=== PATIENT | male | born 1995 | race Caucasian/White ===

== ENCOUNTER 2021-09-24 13:55 | Emergency (ER) | payer OTHER ==
[~2021-09-24] VITALS: Ht 170.2 cm; Wt 72.6 kg
--- NOTE | 2021-09-24 14:15 | NUR ---
BIBS C/O"Abdominal Pain x2wks. Feel constipated". AMBULATORY, PLACED ON BED, AAOX4.
[2021-09-24] MEDS ORDERED: PANTOPRAZOLE 40 MG VIAL ONE (14:49)
[2021-09-24] MEDS ORDERED: ONDANSETRON HCL/PF 4 MG/2 ML VIAL ONE (14:49)
[2021-09-24] MEDS ORDERED: IOHEXOL-300 100 ML VIAL IV ONE (14:53)
[2021-09-24] MEDS ORDERED: CT SWABBABLE VALVE TRANS SET 1 EA INFUS.SET MC ONE (14:54)
[2021-09-24] MEDS ORDERED: IV NS 0.9% 250 ML IV ONE (14:54)
--- NOTE | 2021-09-24 14:55 | NUR ---
BLOOD DRAWN, URINE SAMPLE SENT TO LAB
[2021-09-24] MEDS ORDERED: PANTOPRAZOLE 40 MG VIAL IV ONE (15:00)
[2021-09-24] MEDS ORDERED: IV NS 0.9% 1,000 ML BAG IV ONE (15:00)
[2021-09-24] MEDS ORDERED: ONDANSETRON HCL/PF 4 MG/2 ML VIAL IVP ONE (15:00)
--- NOTE | 2021-09-24 15:02 | NUR ---
PATIENT TAKEN TO CT VIA WHEELCHAIR
[2021-09-24 15:06] LABS: BILIRUBIN,URINE MODERATE (NEGATIVE); COLOR,URINE YELLOW (YELLOW); LEUKOCYTE ESTERASE ,URINE NEGATIVE (NEGATIVE); NITRITE, URINE NEGATIVE (NEGATIVE); PROTEIN,URINE TRACE mg/dl (NEGATIVE); UGLUCOSE NEGATIVE (NEGATIVE); UROBILINOGEN,URINE 0.2 EU/dL (0.2)
[2021-09-24 15:21] LABS: BASOPHILS % (AUTO) 0.3 % (0.0-2.0); EOSINOPHILS % (AUTO) 2.7 % (0.0-6.0); HEMATOCRIT 45 % (39-51); HEMOGLOBIN 15.4 g/dL (13.5-17.5); LYMPHOCYTES # (AUTO) 1.9 K/uL (0.8-4.8); MEAN CORPUSCULAR HGB CONC 34 g/dl (31.0-36.0); MEAN CORPUSCULAR VOLUME 87 fL (80-96); MONOCYTES # (AUTO) 0.5 K/uL (0.1-1.30); MONOCYTES % (AUTO) 9.5 % (2.0-12.0); NEUTROPHILS # (AUTO) 2.6 K/uL (1.8-8.9); NEUTROPHILS % (AUTO) 50.5 % (43.0-81.0); PLATELET COUNT (AUTO) 277 K/uL (150-450); RED BLOOD CELL COUNT(AUTO) 5.24 MIL/uL (4.5-6.0); WHITE BLOOD COUNT (AUTO) 5.1 K/uL (4.3-11.0)
[2021-09-24 15:58] LABS: CALCIUM, SERUM 9.3 mg/dL (8.5-10.1); CREATININE 1.2 mg/dL (0.6-1.3); POTASSIUM 3.9 mmol/L (3.5-5.1)
[2021-09-24 16:04] LABS: ALBUMIN 4.4 g/dL (3.4-5.0); BILIRUBIN,DIRECT 0.2 mg/dL (0.0-0.2); BILIRUBIN,TOTAL 0.7 mg/dL (0.2-1.0); TOTAL PROTEIN, SERUM 8.4 g/dL (6.4-8.2)
[2021-09-24] MEDS ORDERED: PANT40TA2 PO (16:23)
--- NOTE | 2021-09-24 16:32 | NUR ---
IV removed. Catheter intact and site benign. Pressure and 4x4 applied to site. No bleeding noted.Patient discharged to home in stable condition. Written and verbal after care instructions given. Patient verbalizes understanding of instruction.
[2021-09-24 16:33] VITALS: BP 110/74
== END 2021-09-24 16:34 | disposition home or self-care (01) ==
LOC: ER 14:13
DX: R10.9 Unspecified abdominal pain (principal); R11.0 Nausea
CPT/HCPCS: 74177; 99284; 96374; 96361; 96375; 85025; 80048; 83690; 80076; 81003; 36415; J2405; J7030; J7050; C9113; Q9967

== ENCOUNTER 2024-11-11 00:24 | Emergency (ER) | payer MEDICAID, OTHER ==
[~2024-11-11] VITALS: Ht 165.1 cm; Wt 65.8 kg
[~2024-11-11 00:24] MED LIST: PANT40TA2 PO
[2024-11-11 01:06] VITALS: BP 130/78; TEMP 98.5; O2SAT 99
== END 2024-11-11 01:23 | disposition home or self-care (01) ==
LOC: ER 00:28
DX: R40.0 Somnolence (principal); T50.905A Adverse effect of unspecified drugs, medicaments and biological substances, initial encounter; Z79.899 Other long term (current) drug therapy; Y92.89 Other specified places as the place of occurrence of the external cause